=== PATIENT | female | born 1960 | race Caucasian/White ===

== ENCOUNTER 2016-12-03 02:08 | Emergency (ER) | payer OTHER ==
[2016-12-03] MEDS ORDERED: Morphine INJ* 4 MG/ML 1 ML CARPUJECT IV ONE (02:44)
[2016-12-03] MEDS ORDERED: NS 0.9% 1000 ML* 1,000 ML IV ONE (02:44)
[2016-12-03] MEDS ORDERED: Ondansetron INJ* 2 MG/ML VIAL IV ONE (02:44)
[2016-12-03] MEDS ORDERED: HYDROmorphone INJ* 1 MG/ML CARPUJECT SYRINGE IV SLOW PU ONE ×2 (03:02→04:34)
[2016-12-03 03:11] LABS: Hematocrit 42 % (35-47); Hemoglobin 13.4 g/dl (12.0-16.0); Mean Corpuscular HGB Conc 32 g/dl (31-36); Mean Corpuscular Hemoglobin 26 pg (27-31); Mean Corpuscular Volume 81 fL (80-97); Mean Platelet Volume 8 um3 (7.4-10.4); Red Blood Count 5.12 10^6/ul (4.0-5.4); Red Cell Distribution Width 15 % (10.5-15); White Blood Count 13.8 10^3/ul (3.5-10.8)
[2016-12-03 03:28] LABS: Albumin 4.3 g/dL (3.2-5.2); BUN/Creatinine Ratio 20.9 (8-20); Calcium 9.6 mg/dL (8.6-10.3); EGFR African American 88.1 (>60); EGFR Non-African American 68.5 (>60); Globulin 3.5 g/dL (2-4); Total Bilirubin 0.4 mg/dL (0.2-1.0); Total Protein 7.8 g/dL (6.4-8.9)
[2016-12-03 03:30] LABS: Troponin I 0.01 ng/mL (<0.04)
[2016-12-03] MEDS ORDERED: HYDROmorphone INJ* 1 MG/ML CARPUJECT SYRINGE ONE ×2 (04:29→05:44)
[2016-12-03] MEDS ORDERED: Iohexol 300* (CONTRAST) 10 ML SDV IV ONE (04:30)
[2016-12-03] MEDS ORDERED: HYDROmorphone INJ* 2 MG/ML CARPUJECT SYRINGE IV SLOW PU ONE (05:52)
--- NOTE | 2016-12-03 07:09 | ED ---
Nancy Zhang Salem, scribed for Pawan Leiva on 12/03/16 at 0458 . Adult Trauma - HPI Summary HPI Summary: Patient 56 y/o female who presents to the ED after a fall at 2315. She reports falling on uneven pavement and hitting her right side. She denies LOC upon falling and any neck pain, but reports abd pain that is aggravated by recumbent position. She is not on any blood thinners and she is UTD on her vaccinations. Pt dislocated right shoulder in September 2016. - History of Current Complaint Chief Complaint: EDGeneral Stated Complaint: FALL/RIGHT ARM PAIN/HEAD INJURY Time Seen by Provider: 12/03/16 02:28 Hx Obtained From: Patient Mechanism of Injury: Fall Loss of Consciousness: no loss of consciousness Force: Medium Onset/Duration: Started Hours Ago Onset Severity: Moderate Current Severity: Moderate Pain Intensity: 10 Pain Scale Used: 0-10 Numeric Location: Abdomen/Pelvis Aggravating Factor(s): Other - Recumbent posiiotn. Alleviating Factor(s): Nothing Associated Signs & Symptoms: Positive: Other: - No neck pain. - Allergy/Home Medications Allergies/Adverse Reactions: Allergies Allergy/AdvReac Type Severity Reaction Status Date / Time No Known Allergies Allergy Verified 12/03/16 02:21 PMH/Surg Hx/FS Hx/Imm Hx Cardiovascular History: Reports: Other Cardiovascular Problems/Disorders - Heart murmur. - Surgical History Surgery Procedure, Year, and Place: HYSTERECTOMY Infectious Disease History: No Infectious Disease History: Reports: Traveled Outside the [place] in Last 30 Days - Family History Known Family History: Negative: Diabetes - Social History Alcohol Use: None Hx Substance Use: No Hx Tobacco Use: No Review of Systems Negative: Fever ENT: Other - No neck pain. Neurological: Other - No LOC. All Other Systems Reviewed And Are Negative: Yes Physical Exam Triage Information Reviewed: Yes Vital Signs On Initial Exam: Initial Vitals Temp Pulse Resp BP Pulse Ox 99.2 F 80 16 184/95 96 12/03/16 02:15 12/03/16 02:15 12/03/16 02:15 12/03/16 02:15 12/03/16 02:15 Vital Signs Reviewed: Yes Appearance: Positive: Well-Appearing Skin: Positive: Warm, Skin Color Reflects Adequate Perfusion, Dry Head/Face: Positive: Other - Abrasion on right face (maxilla). Eyes: Positive: EOMI, ANAYA Neck: Positive: Supple, Nontender Respiratory/Lung Sounds: Positive: Clear to Auscultation, Breath Sounds Present , Other - Chest tenderness. Cardiovascular: Positive: RRR, Pulses are Symmetrical in both Upper and Lower Extremities Abdomen Description: Positive: Other: - Tenderness RUQ. Bowel Sounds: Positive: Present Musculoskeletal: Positive: Other - Abrasion and tenderness on RUE. Neurological: Positive: Normal, Sensory/Motor Intact, Alert, Oriented to Person Place, Time Diagnostics - Vital Signs Vital Signs Temp Pulse Resp BP Pulse Ox 12/03/16 02:15 99.2 F 80 16 184/95 96 - Laboratory Result Diagrams: 12/03/16 02:55 12/03/16 02:55 Lab Statement: Any lab studies that have been ordered have been reviewed, and results considered in the medical decision making process. - Radiology SHOULDER XRAY Radiology Interpretation Completed By: ED Physician - Questionable subluxation of right shoulder joint. - CT BRAIN CT Interpretation Completed By: Radiologist - IMPRESSION: No mass effect or intracranial hemorrhage. CERVICAL SPINE CT Interpretation Completed By: Radiologist - IMPRESSION: No fracture or listhesis seen. CHEST CT Interpretation Completed By: Radiologist - IMPRESSION: No traumatic injuries identified in the chest abd or pelvis. Re-Evaluation - Re-Evaluation First Eval Re-Evaluation Time: 03:54 Comment: Informed pt of current plan. Adult Trauma Course/Dx - Diagnoses Provider Diagnoses: Head injury, Fall, Right shoulder injury Discharge - Discharge Plan Condition: Stable Disposition: HOME Referrals: [facility] [place] [facility] [Outside] Additional Instructions: Follow up with PCP within 3 days. The documentation as recorded by the Nancy randall Salem accurately reflects the service I personally performed and the decisions made by Abbie harvey Emmanuel.
--- NOTE | 2016-12-03 07:12 | RAD ---
INDICATION: Intracranial injury . Tripped and fell while walking. COMPARISON: None TECHNIQUE: Noncontrast axial source images were acquired from the skull base to the vertex. FINDINGS: Ventricles/sulci: There is mild cortical atrophy with compensatory dilatation of the CSF spaces. Brain parenchyma: There is no focal parenchymal finding, evidence of intracranial mass, or intracranial mass effect. Intracranial hemorrhage:None. Extra-axial spaces: There are no abnormal extra axial fluid collections or evidence of extra-axial mass. Calvarium: There is no calvarial fracture or other calvarial abnormality. Scalp: There is no evidence of scalp or extracalvarial soft tissue abnormality. Paranasal sinuses/mastoid: The paranasal sinuses and mastoid air cells are clear. Other: None. IMPRESSION: NO ACUTE INTRACRANIAL FINDINGS
--- NOTE | 2016-12-03 07:13 | RAD ---
INDICATION: Tripped while walking. Neck pain COMPARISON: None TECHNIQUE: Noncontrast axial source images was performed from the skull base to the thoracic inlet. Coronal and and sagittal reformatted images were generated. FINDINGS: Vertebrae: There is no fracture or acute focal bony lesion. There are osteophytes are change with endplate sclerosis, anterior vertebral spurring, and mild disc space narrowing at C4-C7. Alignment: The craniocervical junction appears normal. The cervical vertebrae are normally aligned. Central Canal: There are no significant CT abnormalities of the central canal or foramina. MR imaging is a more sensitive method to evaluate the canal and foramina. Intervertebral disc spaces: The remaining disc spaces are maintained. Brain: The visualized brain appears unremarkable. Soft tissues: The visualized soft tissue elements of the neck are unremarkable. The prevertebral soft tissues appear normal. The lung apices are clear. IMPRESSION: MINOR OSTEOARTHRITIC CHANGE. NO ACUTE FINDINGS
--- NOTE | 2016-12-03 07:17 | RAD ---
INDICATION: Right shoulder pain. Injury. COMPARISON: None TECHNIQUE: Routine frontal and Y views were obtained. FINDINGS: There is osteopenia. There is mild a.c. and glenohumeral osteoarthritis with minimal irregularities of the greater tuberosity. There is no acute fracture or dislocation. IMPRESSION: MINOR OSTEOARTHRITIS. NO ACUTE FINDINGS.
--- NOTE | 2016-12-03 07:32 | RAD ---
INDICATION: Fall. Shoulder pain. COMPARISON: None TECHNIQUE: Axial source images were obtained from the thoracic inlet to the symphysis pubis following administration of 145 mL Omnipaque 300. No oral contrast was given per ED request. Coronal and sagittal reconstructed images were acquired. CHEST FINDINGS: Neck/thyroid: The visualized neck to include the thyroid appear normal. Chest wall: There are no acute abnormalities of the bony thorax or chest wall. There is no supraclavicular, infraclavicular, or axillary lymphadenopathy. Lungs : There are no pulmonary parenchymal masses or infiltrates. The pulmonary interstitium appears normal. There are no endobronchial lesions. Cardiomediastinal structures: The heart is normal in size. There is no pericardial effusion. There is no evidence of aortic aneurysm or dissection. The pulmonary vessels appear normal. There is no mediastinal or hilar adenopathy. The esophagus appears normal. Pleura : There are no pleural-based masses or effusions. ABDOMINAL/PELVIC FINDINGS: Liver: The liver is normal in size. There are no masses. There is no ductal dilatation. Gallbladder: ] Cystectomy. Spleen: The spleen is normal in size. There are no masses. Pancreas: There is no evidence of pancreatic mass or ductal dilatation. Adrenal glands: There is no evidence of adrenal mass. Kidneys: The kidneys are normal in size and position. There are prompt nephrograms and there is prompt excretion bilaterally. There are no renal parenchymal masses. There is no evidence of nephrolithiasis. Adenopathy: There is no evidence of adenopathy by size criteria. Fluid collections: There are no free or localized fluid collections. Vessels:The aorta and IVC appear normal GI tract: There are no acute abnormalities of the upper GI tract. There is bariatric surgery. The lower GI tract is essentially unremarkable. Evaluation GI tract is somewhat limited without oral contrast Pelvic organs: There is hysterectomy. There is no adnexal mass Bladder: There are no bladder masses. Abdominal and pelvic soft tissues: There is a small ventral hernia containing fat. Osseous structures: There are no definitive acute adenitis of the bony thorax. Specifically there is no definitive fracture about the right shoulder. There is mild a.c. and glenohumeral osteoarthritis. There are minimal irregularities but the greater tuberosity but no distinct fracture line is seen. There is mild inferior subluxation at the glenohumeral joint. There is no evidence of luda disc location. Remainder the bony thorax shows no acute bony change. There are no acute thoracic or lumbar abnormalities. There is multilevel spondylitic change. There is no acute fracture the bony pelvis IMPRESSION: No CT evidence of acute medical injury to the chest/abdomen/pelvis. Ossific changes about the right shoulder but no definitive fracture. Suggest follow-up imaging right shoulder and 7-10 days if there is persistent concern. Postoperative changes to include bariatric surgery, cholecystectomy. Hysterectomy. Small ventral hernia.
[2016-12-03 07:33] VITALS: BP 166/82
[2016-12-03 08:27] LABS: Urine Bacteria 1+ (Absent); Urine Bilirubin Negative (Negative); Urine Glucose Negative (Negative); Urine Nitrite Negative (Negative)
--- NOTE | 2016-12-05 08:50 | PN ---
Progress Note - Progress Note Note: Urine culture grew E coli 75-100,000. Attempted to call and left voice message and asked if experiencing any UTI symptoms. Told to call back if having any symptoms and will send script to pharmacy
== END 2016-12-03 07:31 | disposition home or self-care (01) ==
LOC: ED 02:08
DX: S09.90XA Unspecified injury of head, initial encounter (principal); S49.91XA Unspecified injury of right shoulder and upper arm, initial encounter; W19.XXXA Unspecified fall, initial encounter; Y93.9 Activity, unspecified; Y92.9 Unspecified place or not applicable; Y99.9 Unspecified external cause status
CPT/HCPCS: 36415; 70450; 71260; 72125; 74177; 80053; 81003; 81015; 83690; 84484; 85025; 87077; 87086; 87186; 96374; 96375; 99284; J1170; J2270; J2405; Q9967